=== PATIENT | female | born 1990 | race Caucasian/White ===

== ENCOUNTER → 2017-03-30 | Outpatient (CLI) | payer OTHER ==
--- NOTE | 2017-03-30 11:20 | KCIC ---
Single view chest Indication: Positive reactor Findings: The heart size is normal. Pulmonary vasculature is within normal limits. No pleural effusion, consolidation, or pneumothorax. Impression: No acute disease of the chest. Specifically, there is no radiographic evidence for active pulmonary tuberculosis. Electronically signed by: Doug Fuentes MD (03/30/2017 11:16 AM)
== END | disposition home or self-care (01) ==
LOC: KCIC 11:00
PROVIDERS: ATTEND Family Medicine
DX: Z20.1 Contact with and (suspected) exposure to tuberculosis (principal)
CPT/HCPCS: 71010